=== PATIENT | female | born 1980 | race Caucasian/White ===

== ENCOUNTER 2023-09-15 19:47 | Inpatient (IN) | payer MEDICAID ==
[~2023-09-15] VITALS: Ht 154.9 cm; Wt 51.3 kg
[2023-09-15] MEDS ORDERED: KETOROLAC TROMETHAMINE INJ 30 MG/ML VIAL ONE (20:18)
[2023-09-15] MEDS ORDERED: CEFTRIAXONE 1GM BAG (ER ONLY) 50 ML IV ONE (20:18)
[2023-09-15] MEDS: IV NS 0.9% 1,000 ML BAG IV ONE (20:20)
[2023-09-15] MEDS: KETOROLAC TROMETHAMINE INJ 30 MG/ML VIAL IV ONE (20:21)
[2023-09-15] MEDS: CEFTRIAXONE 1GM BAG (ER ONLY) 50 ML IV ONE (20:21)
[2023-09-15 20:30] LABS: BASOPHILS % (AUTO) 0.1 % (0.0-2.0); EOSINOPHILS % (AUTO) 0.4 % (0.0-6.0); HEMATOCRIT 34 % (33-45); HEMOGLOBIN 11.7 g/dL (11.5-14.8); LYMPHOCYTES % (AUTO) 8.5 % (20.0-44.0); MEAN CORPUSCULAR HEMOGLOBIN 33 PG (26.0-33.0); MEAN CORPUSCULAR HGB CONC 34 g/dl (31.0-36.0); MEAN CORPUSCULAR VOLUME 96 fL (82-100); MONOCYTES # (AUTO) 0.9 K/uL (0.1-1.30); MONOCYTES % (AUTO) 7.4 % (2.0-12.0); NEUTROPHILS # (AUTO) 9.9 K/uL (1.8-8.9); NEUTROPHILS % (AUTO) 83.6 % (43.0-81.0); PLATELET COUNT (AUTO) 394 K/uL (150-450); RED BLOOD CELL COUNT(AUTO) 3.59 MIL/uL (4.0-5.2); RED CELL DISTRIBUTION WIDTH 13.3 % (11.5-15.0); WHITE BLOOD COUNT (AUTO) 11.9 K/uL (4.3-11.0)
[2023-09-15 20:44] LABS: INR 1.15 (0.91-1.10); PARTIAL THROMBOPLASTIN TIME 31.9 SEC (24.3-34.3); PROTHROMBIN TIME 12.1 SECS (9.2-11.1)
[2023-09-15 20:45] LABS: ALANINE AMINOTRANSFERASE 15 U/L (12-78); ALBUMIN 3.3 g/dL (3.4-5.0); ALKALINE PHOSPHATASE 55 U/L (46-116); ASPARTATE AMINOTRANSFERASE < 5 U/L (15-37); BILIRUBIN,DIRECT 0.1 mg/dL (0.0-0.2); BILIRUBIN,TOTAL 0.4 mg/dL (0.2-1.0); CALCIUM, SERUM 8.8 mg/dL (8.5-10.1); CARBON DIOXIDE 23 mmol/L (21-32); CHLORIDE 100 mmol/L (98-107); CREATININE 0.8 mg/dL (0.6-1.3); GLUCOSE 84 mg/dL (74-106); POTASSIUM 3.5 mmol/L (3.5-5.1); SODIUM SERUM 137 mmol/L (136-145); TOTAL PROTEIN, SERUM 7.9 g/dL (6.4-8.2); UREA NITROGEN, BLOOD 7 mg/dL (7-18)
[2023-09-15 20:48] LABS: LACTIC ACID 1.5 mmol/L (0.4-2.0)
[2023-09-15] MEDS ORDERED: ONDANSETRON HCL/PF 4 MG/2 ML VIAL ONE (20:58)
[2023-09-15] MEDS ORDERED: ACETAMINOPHEN ES 500 MG TABLET ONE (20:59)
[2023-09-15] MEDS: ACETAMINOPHEN ES 500 MG TABLET PO ONE (21:06)
[2023-09-15] MEDS: ONDANSETRON HCL/PF - ER 4 MG/2 ML VIAL IV ONE (21:06)
[2023-09-15 21:21] LABS: APPEARANCE,URINE CLEAR (CLEAR); BILIRUBIN,URINE NEGATIVE (NEGATIVE); BLOOD, URINE TRACE-INTA Ery/uL (NEGATIVE); COLOR,URINE YELLOW (YELLOW); KETONES,URINE NEGATIVE (NEGATIVE); LEUKOCYTE ESTERASE ,URINE 1+ (NEGATIVE); NITRITE, URINE POSITIVE (NEGATIVE); PH,URINE 7.5 (5.0-8.0); PROTEIN,URINE NEGATIVE (NEGATIVE); UGLUCOSE NEGATIVE (NEGATIVE); UROBILINOGEN,URINE 0.2 EU/dL (0.2)
[2023-09-15 21:23] LABS: PREGNANCY TEST URINE QUAL NEGATIVE (NEGATIVE)
[2023-09-15 21:33] LABS: ADD URINE CULTURE YES; BACTERIA,URINE 1+ /HPF (None Seen); RBC,URINE 0-2 /HPF (0-2); SQUAMOUS EPITHELIAL CELL,UR Few /HPF (None Seen); WBC,URINE 81-100 /HPF (0-3)
[2023-09-15] MEDS ORDERED: MORPHINE SULFATE INJ 2 MG/ML DISP.SYRIN ONE (22:42)
[2023-09-15] MEDS: MORPHINE SULFATE INJ 2 MG/ML DISP.SYRIN IV ONE (22:46)
[2023-09-16 02:46] VITALS: BP 92/58; TEMP 98.6; O2SAT 100
[2023-09-16] MEDS ORDERED: ONDANSETRON HCL/PF 4 MG/2 ML VIAL IV PRN (04:00)
[2023-09-16] MEDS ORDERED: ACETAMINOPHEN 325 MG TABLET PO PRN (04:00)
[2023-09-16] MEDS ORDERED: HYDROCODONE/APAP 5/325MG TABLET PO PRN (04:00)
[2023-09-16] MEDS ORDERED: IV NS 0.9% 1,000 ML BAG IV PRN (04:00)
[2023-09-16] MEDS ORDERED: ZOLPIDEM TARTRATE 5 MG TABLET PO PRN ×2 (04:00)
[2023-09-16] MEDS: IV NS 0.9% 1,000 ML IV PRN (04:13)
[2023-09-16] MEDS: HYDROCODONE/APAP 5/325MG TABLET PO PRN (04:23)
[2023-09-16] MEDS: ONDANSETRON HCL/PF 4 MG/2 ML VIAL IV PRN (04:27)
[2023-09-16 05:14] VITALS: BP 92/58; TEMP 98.6; O2SAT 100
[2023-09-16] MEDS: ACETAMINOPHEN 325 MG TABLET PO PRN (05:38)
[2023-09-16 06:20] LABS: BASOPHILS % (AUTO) 0.1 % (0.0-2.0); EOSINOPHILS % (AUTO) 0.3 % (0.0-6.0); HEMATOCRIT 30 % (33-45); HEMOGLOBIN 10.2 g/dL (11.5-14.8); LYMPHOCYTES # (AUTO) 1.1 K/uL (0.8-4.8); LYMPHOCYTES % (AUTO) 9.5 % (20.0-44.0); MEAN CORPUSCULAR HEMOGLOBIN 33 PG (26.0-33.0); MEAN CORPUSCULAR HGB CONC 34 g/dl (31.0-36.0); MEAN CORPUSCULAR VOLUME 95 fL (82-100); MONOCYTES # (AUTO) 1.1 K/uL (0.1-1.30); MONOCYTES % (AUTO) 9.4 % (2.0-12.0); NEUTROPHILS # (AUTO) 9.6 K/uL (1.8-8.9); NEUTROPHILS % (AUTO) 80.7 % (43.0-81.0); PLATELET COUNT (AUTO) 307 K/uL (150-450); RED BLOOD CELL COUNT(AUTO) 3.14 MIL/uL (4.0-5.2); RED CELL DISTRIBUTION WIDTH 13.4 % (11.5-15.0); WHITE BLOOD COUNT (AUTO) 11.9 K/uL (4.3-11.0)
[2023-09-16 06:40] LABS: CALCIUM, SERUM 7.7 mg/dL (8.5-10.1); CREATININE 0.6 mg/dL (0.6-1.3); POTASSIUM 3.5 mmol/L (3.5-5.1)
[2023-09-16 06:48] LABS: LACTIC ACID 0.6 mmol/L (0.4-2.0)
[2023-09-16 07:57] LABS: THYROID STIMULATING HORMONE 0.27 uIU/mL (0.358-3.74)
[2023-09-16 08:00] VITALS: BP 88/55; TEMP 98.6; O2SAT 100
[2023-09-16] MEDS: IV NS 0.9% 500 ML IV ONE (08:19)
[2023-09-16] MEDS: MEROPENEM 1 G in IV NS 0.9% 100 ML IV SCH (10:02)
[2023-09-16] MEDS: Potassium Chloride 10 MEQ in IV D5/ 0.9% NACL 1,000 ML IV SCH (12:42)
[2023-09-16 16:00] VITALS: BP 100/57; TEMP 100.6; O2SAT 96
[2023-09-16] MEDS: MEROPENEM 500 MG in IV NS 0.9% 50 ML IV SCH (17:56)
[2023-09-16 20:00] VITALS: BP 105/61; TEMP 98.6; O2SAT 98
[2023-09-16] MEDS ORDERED: CEFTRIAXONE 1 G in IV D5W 50 ML IV SCH ×2 (20:00)
[2023-09-17 04:00] VITALS: BP 86/57; TEMP 98.3; O2SAT 100
[2023-09-17 06:56] LABS: BASOPHILS % (AUTO) 0.4 % (0.0-2.0); EOSINOPHILS # (AUTO) 0.1 K/uL (0.0-0.7); EOSINOPHILS % (AUTO) 0.9 % (0.0-6.0); HEMATOCRIT 28 % (33-45); HEMOGLOBIN 9.8 g/dL (11.5-14.8); LYMPHOCYTES # (AUTO) 2.1 K/uL (0.8-4.8); LYMPHOCYTES % (AUTO) 20.6 % (20.0-44.0); MEAN CORPUSCULAR HEMOGLOBIN 33 PG (26.0-33.0); MEAN CORPUSCULAR HGB CONC 35 g/dl (31.0-36.0); MEAN CORPUSCULAR VOLUME 96 fL (82-100); MONOCYTES % (AUTO) 9.8 % (2.0-12.0); NEUTROPHILS # (AUTO) 6.8 K/uL (1.8-8.9); NEUTROPHILS % (AUTO) 68.3 % (43.0-81.0); PLATELET COUNT (AUTO) 291 K/uL (150-450); RED BLOOD CELL COUNT(AUTO) 2.94 MIL/uL (4.0-5.2); RED CELL DISTRIBUTION WIDTH 13.3 % (11.5-15.0)
[2023-09-17 07:15] LABS: CALCIUM, SERUM 8.1 mg/dL (8.5-10.1); CREATININE 0.5 mg/dL (0.6-1.3); POTASSIUM 3.5 mmol/L (3.5-5.1)
[2023-09-17 08:00] VITALS: BP 92/64; TEMP 98.2; O2SAT 100
[2023-09-17] MEDS: IV NS 0.9% 500 ML IV ONE (08:29)
[2023-09-17] MEDS ORDERED: ERTA1VIA IJ (08:32)
[2023-09-17] MEDS ORDERED: FERR-68 PO (08:32)
[2023-09-17] MEDS: SOD FERRIC GLUC 125 MG in IV NS 0.9% 100 ML IV SCH (13:52)
[2023-09-17 16:00] VITALS: BP 98/63; TEMP 98.1; O2SAT 100
[2023-09-17 20:00] VITALS: BP 107/74; TEMP 98.1; O2SAT 100
[2023-09-18 04:00] VITALS: BP 97/61; TEMP 98.1; O2SAT 99
[2023-09-18 08:00] VITALS: BP 103/67; TEMP 98.4; O2SAT 99
[2023-09-18] MEDS: KETOROLAC TROMETHAMINE 15 MG/ML VIAL IM ONE (08:00)
[2023-09-18] MEDS: KETOROLAC TROMETHAMINE INJ 30 MG/ML VIAL IM ONE (08:33)
== END 2023-09-18 16:05 | disposition home health service (06) | DRG 720 ==
LOC: ER 19:54 → MEDSG1 09-16 01:52
PROVIDERS: ADMIT Internal Medicine; ATTEND Internal Medicine
PROC: 02HV33Z Insertion of Infusion Device into Superior Vena Cava, Percutaneous Approach (ICD-10-PCS; principal; 2023-09-16)
PROC: B548ZZA Ultrasonography of Superior Vena Cava, Guidance (ICD-10-PCS; 2023-09-16)
DX: A41.9 Sepsis, unspecified organism (principal); N12 Tubulo-interstitial nephritis, not specified as acute or chronic; E86.0 Dehydration; B96.20 Unspecified Escherichia coli [E. coli] as the cause of diseases classified elsewhere; D50.9 Iron deficiency anemia, unspecified; Z16.12 Extended spectrum beta lactamase (ESBL) resistance; Z20.822 Contact with and (suspected) exposure to COVID-19
CPT/HCPCS: 36415; 71045-TC; 76770-TC; 80048-TC; 80076-TC; 81001; 83540-TC; 83605-TC; 84443-TC; 84484-TC; 84702-TC; 84703-TC; 85025-TC; 85730-TC; 87040-TC; 87086-TC; A4223; G0378; J0696; J1885; J2185; J2270; J2405; J2916; J3480; J7030; J7040; J7042; J7060